=== PATIENT | female | born 1955 | race African-American/Black ===

== ENCOUNTER 2020-06-29 12:19 | Outpatient (CLI) | payer OTHER | END 2020-06-29 12:20 | disposition home or self-care (01) | LOC: CSHMRI 12:19 | PROVIDERS: ATTEND Internal Medicine Medical Oncology | DX: C50.911 Malignant neoplasm of unspecified site of right female breast (principal); R20.2 Paresthesia of skin; M89.8X1 Other specified disorders of bone, shoulder; M47.814 Spondylosis without myelopathy or radiculopathy, thoracic region; M47.812 Spondylosis without myelopathy or radiculopathy, cervical region | CPT/HCPCS: 72156; 72157; 82565 ==